=== PATIENT | female | born 2000 | race Caucasian/White ===

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

== ENCOUNTER 2018-04-25 19:39 | Emergency (ER) | payer MEDICAID ==
--- NOTE | 2018-04-25 20:30 | EDM.PDOC ---
ED HPI GENERAL MEDICAL PROBLEM - General Chief Complaint: Lower Extremity Injury/Pain Stated Complaint: POSSIBLE BROKEN TOE Time Seen by Provider: 04/25/18 20:10 Source of Information: Reports: Patient History Limitations: Reports: No Limitations - History of Present Illness INITIAL COMMENTS - FREE TEXT/NARRATIVE: 17-year-old female stubbed her right large toe this morning at 7 AM. It's been swollen all day, painful, and tonight started becoming ecchymotic so she wanted checked. No other injury or complaints. Onset: Sudden Duration: Hour(s): (13 hours ago) Location: Reports: Upper Extremity, Left Quality: Reports: Ache, Throbbing Worsens with: Reports: Other (Weightbearing and walking) Associated Symptoms: Reports: No Other Symptoms Right Big Toe Pain Score (Numeric/FACES): 6 - Related Data Allergies Allergy/AdvReac Type Severity Reaction Status Date / Time No Known Allergies Allergy Verified 04/25/18 20:07 Home Meds: Home Meds PNV95/Ferrous Fumarate/FA [ Tablet] 1 each PO DAILY 08/08/17 [History] Past Medical History - Past Health History Medical/Surgical History: Denies Medical/Surgical History [employer] History: Reports: Musculoskeletal History: Reports: Other (See Below) Other Musculoskeletal History: broken right femur as a toddler Neurological History: Reports: Migraines Social & Family History - Family History Family Medical History: Noncontributory - Tobacco Use Smoking Status *Q: Never Smoker Second Hand Smoke Exposure: No - Caffeine Use Caffeine Use: Reports: Soda - Recreational Drug Use Recreational Drug Use: No Review of Systems - Review of Systems Review Of Systems: See Below Constitutional: Denies: Fever Respiratory: Reports: No Symptoms Cardiovascular: Reports: No Symptoms GI/Abdominal: Reports: No Symptoms Genitourinary: Reports: No Symptoms Neurological: Reports: No Symptoms ED EXAM, GENERAL - Physical Exam Exam: See Below Exam Limited By: No Limitations General Appearance: Alert, No Apparent Distress Respiratory/Chest: No Respiratory Distress Extremities: Other (Exam is otherwise limited to the right foot. Patient has an extremely tender large toe with a linear bruise on the top of the toe and moderate ecchymosis around the IP joint. There is moderate swelling as well.) Neurological: Alert, Oriented Skin Exam: Ecchymosis Course - Vital Signs Last Recorded V/S: Last Vital Signs Temp 98.2 F 04/25/18 21:24 Pulse 74 04/25/18 21:24 Resp 12 04/25/18 21:24 BP 122/72 04/25/18 21:24 Pulse Ox 98 04/25/18 21:24 - Orders/Labs/Meds Orders: Active Orders 24 hr Category Date Time Status DME for Discharge [COMM] Stat Oth 04/25/18 20:56 Ordered - Re-Assessments/Exams Free Text/Narrative Re-Assessment/Exam: 04/25/18 20:31 An x-ray of the large right toe was obtained. 04/25/18 20:53 x-ray confirms a transverse fracture of the distal aspect of the proximal phalanx of the large toe. Somewhat concerning as it appears to be mildly comminuted with the fracture line extending into the IP joint. Patient was placed in an orthopedic shoe and the toes margot taped. She'll be discharged with 6 hydrocodone for extra pain control and I asked her to follow-up with orthopedics hopefully tomorrow. Next Monday would be reasonable as well. 04/25/18 20:57 Patient was also fitted for crutches to assist with ambulation over the next several days. Departure - Departure Time of Disposition: 21:29 Disposition: Home, Self-Care 01 Condition: Good Clinical Impression: Fx phalanx, foot-closed Qualifiers: Encounter type: initial encounter Toe: great toe Phalanx: proximal Physeal involvement: unspecified Laterality: right Qualified Code(s): S92.411A - Displaced fracture of proximal phalanx of right great toe, initial encounter for closed fracture - Discharge Information Instructions: Toe Fracture, [id number] Referrals: Kenya Caicedo CNM [Primary Care Provider] - Forms: ED Department Discharge Care Plan Goals: Try to recheck with orthopedics tomorrow or next Monday. Wear shoe until your recheck, margot tape the toes if it helps, and elevate when able. Ibuprofen will help, add your stronger pain medications if needed. - My Orders Last 24 Hours: My Active Orders 04/25/18 20:56 DME for Discharge [COMM] Stat - Assessment/Plan Last 24 Hours: My Active Orders 04/25/18 20:56 DME for Discharge [COMM] Stat
--- NOTE | 2018-04-25 21:19 | CRLCR ---
INDICATION: Pain after injury COMPARISON: None available. TECHNIQUE: The right great toe is examined with AP, lateral, and oblique views. There is an acute, oblique, intra-articular, nondisplaced fracture of the head of the 1st proximal phalanx. There is no sign of additional fracture or dislocation. The soft tissues are normal in appearance without sign of radio-opaque foreign body. No significant degenerative disease is seen. IMPRESSION: Acute, oblique, intra-articular, nondisplaced fracture of the head of the 1st proximal phalanx. Dictated by William Lake MD @ Apr 25 2018 9:14PM Signed by Dr. William Lake @ Apr 25 2018 9:16PM
== END 2018-04-25 21:05 | disposition home or self-care (01) ==
LOC: JP.ED 19:39
DX: S92.411A Displaced fracture of proximal phalanx of right great toe, initial encounter for closed fracture (principal); W22.8XXA Striking against or struck by other objects, initial encounter
CPT/HCPCS: 73660-T5; 99283-25

== ENCOUNTER 2021-04-19 01:30 | Inpatient (IN) | payer MEDICAID ==
[2021-04-19] MEDS ORDERED: Misoprostol 50 MCG (1/2 of 100 MCG) Tab VAG ONE (07:15)
[2021-04-19] MEDS ORDERED: Labetalol 100 MG Tab PO ONE (08:30)
[2021-04-19 09:27] LABS: CORONAVIRUS COVID-19 NAA NEGATIVE (NEGATIVE)
[2021-04-19] MEDS ORDERED: Misoprostol 25 MCG (1/4 of 100 MCG) Tab PO ONE (11:59)
[2021-04-19] MEDS ORDERED: Misoprostol 25 MCG (1/4 of 100 MCG) Tab ONE (12:01)
[2021-04-19] MEDS ORDERED: fentaNYL 100 MCG/2 ML SDV IVPUSH ONE ×2 (18:11→19:27)
[2021-04-19] MEDS ORDERED: Hydrocortisone 2.5% Crm 30 GM Tube TOP PRN (21:11)
[2021-04-19] MEDS ORDERED: Witch Hazel Medicated Pads 100/Jar TOP ONE (21:11)
[2021-04-19] MEDS ORDERED: Lanolin 100% Cream 40 GM Tube TOP ONE (21:11)
[2021-04-19] MEDS ORDERED: Benzocaine 20% Top Spray 56 GM Bottle TOP ONE (21:11)
[2021-04-19] MEDS: Acetaminophen 325 MG Tab PO PRN (22:27)
[2021-04-20] MEDS ORDERED: Witch Hazel Medicated Pads 100/Jar TOP PRN (07:11)
[2021-04-20] MEDS ORDERED: Benzocaine 20% Top Spray 56 GM Bottle TOP PRN (07:12)
[2021-04-20] MEDS ORDERED: Lanolin 100% Cream 40 GM Tube TOP PRN (07:13)
[2021-04-20] MEDS: Acetaminophen 325 MG Tab PO PRN ×2 (07:49→13:13)
[2021-04-20] MEDS: Labetalol 100 MG Tab PO SCH ×2 (08:59→20:47)
[2021-04-21] MEDS: Acetaminophen 325 MG Tab PO PRN (07:19)
[2021-04-21] MEDS: Labetalol 100 MG Tab PO SCH (08:25)
[2021-04-21] MEDS ORDERED: Non-Formulary Medication 1 Each (Pnv No.95/Ferrous Fum/Folic Ac [Prenatal Tablet] 1 EACH T PO SCH (09:00)
[2021-04-21] MEDS ORDERED: Aspirin 81 MG Tab.EC PO SCH (09:00)
[2021-04-21] MEDS ORDERED: Labetalol 100 MG Tab PO SCH (09:00)
[2021-04-21] MEDS ORDERED: Prenatal Multivitamin with Calcium/Folic Acid/Iron Tab PO SCH (09:00)
== END 2021-04-21 11:30 | disposition home or self-care (01) | DRG 807 ==
LOC: EDSTATUS 01:35 → PREINTOOBSV 01:40 → JP.OB 06:55 → OBSVTOIN 20:49 → JP.MS 22:58
PROVIDERS: ADMIT Nurse Practitioner Family; ATTEND Nurse Practitioner Family
PROC: 10E0XZZ Delivery of Products of Conception, External Approach (ICD-10-PCS; principal; 2021-04-19)
PROC: 3E0P7VZ Introduction of Hormone into Female Reproductive, Via Natural or Artificial Opening (ICD-10-PCS; 2021-04-19)
PROC: 10907ZC Drainage of Amniotic Fluid, Therapeutic from Products of Conception, Via Natural or Artificial Opening (ICD-10-PCS; 2021-04-19)
PROC: 4A1HXCZ Monitoring of Products of Conception, Cardiac Rate, External Approach (ICD-10-PCS; 2021-04-19)
DX: O13.4 Gestational [pregnancy-induced] hypertension without significant proteinuria, complicating childbirth (principal); Z37.0 Single live birth; Z3A.39 39 weeks gestation of pregnancy; Z20.822 Contact with and (suspected) exposure to COVID-19; Z87.891 Personal history of nicotine dependence
CPT/HCPCS: 0241U; 36415; 76818; 80053; 80305-QW; 81001; 82570; 83615; 83735; 84156; 84550; 85025; A9270-GY; J2590; J3010

== ENCOUNTER 2021-12-24 08:33 | Emergency (ER) | payer MEDICAID ==
[2021-12-24 09:40] LABS: CORONAVIRUS COVID-19 NAA NEGATIVE (NEGATIVE)
== END 2021-12-24 10:51 | disposition home or self-care (01) ==
LOC: JP.ED 08:33
DX: R05.9 Cough, unspecified (principal); B97.4 Respiratory syncytial virus as the cause of diseases classified elsewhere; Z20.822 Contact with and (suspected) exposure to COVID-19
CPT/HCPCS: 0241U; 99283

== ENCOUNTER 2023-09-09 02:15 | Emergency (ER) | payer MEDICAID ==
[2023-09-09] MEDS: Sodium Chloride 0.9% 1,000 ML IV SCH (03:15)
[2023-09-09 03:17] LABS: BASOPHILS ABSOLUTE AUTO 0.05 K/uL (0.00-0.10); BASOPHILS PERCENT AUTO 0.9 % (0.1-1.3); EOSINOPHILS ABSOLUTE AUTO 0.18 K/uL (0.00-0.40); EOSINOPHILS PERCENT AUTO 3.2 % (0.0-5.4); HEMATOCRIT 33.1 % (34.3-46.0); HEMOGLOBIN 10.9 g/dL (11.2-15.5); IMMATURE GRAN PERCENT AUTO 0.2 % (0.0-0.7); LYMPHOCYTES ABSOLUTE AUTO 1.72 K/uL (0.8-3.3); LYMPHOCYTES PERCENT AUTO 30.3 % (11.4-47.7); MEAN CORPUSCULAR HEMOGLOBIN 27.4 pg (31.6-35.5); MEAN CORPUSCULAR HGB CONC 32.9 g/dL (31.6-35.5); MEAN CORPUSCULAR VOLUME 83.2 fL (81.4-99.0); MONOCYTES ABSOLUTE AUTO 0.37 K/uL (0.20-0.90); MONOCYTES PERCENT AUTO 6.5 % (3.3-12.6); NEUTROPHILS ABSOLUTE AUTO 3.35 K/uL (1.0-7.6); NEUTROPHILS PERCENT AUTO 58.9 % (40.0-78.1); PLATELET COUNT,PLT 202 K/uL (130-375); RED BLOOD CELL COUNT 3.98 M/uL (3.77-5.24); WHITE BLOOD CELL COUNT,WBC 5.7 K/uL (3.2-11.0)
[2023-09-09] MEDS: droPERidol 5 MG/2 ML SDV IVPUSH ONE (03:18)
[2023-09-09 03:20] LABS: IMMATURE GRAN ABSOLUTE AUTO 0.01 K/uL (0.00-0.23)
[2023-09-09 03:33] LABS: A/G RATIO 1.2 (1.2-2.2); ALANINE AMINOTRANSFERASE,ALT 30 U/L (12-78); ALBUMIN 4.5 g/dL (3.4-5.0); ALKALINE PHOSPHATASE 80 U/L (46-116); ASPARTATE AMNIOTRANSFERASE,AST 17 U/L (15-37); BILIRUBIN TOTAL 0.3 mg/dL (0.2-1.0); BLOOD UREA NITROGEN,BUN 6 mg/dL (7-18); CALCIUM 8.6 mg/dL (8.5-10.1); CARBON DIOXIDE,CO2 26 mmol/L (21-32); CHLORIDE,CL 104 mmol/L (100-108); CREATININE 0.7 mg/dL (0.6-1.0); ESTIMATED GFR 124 mL/min (>60); GLUCOSE RANDOM 100 mg/dL (74-106); POTASSIUM,K 3.5 mmol/L (3.6-5.2); PROTEIN TOTAL,TP 8.4 g/dL (6.4-8.2); SODIUM,NA 142 mmol/L (140-148)
[2023-09-09 03:48] LABS: ANION GAP 15.5 mmol/L (5.0-14.0)
== END 2023-09-09 06:07 | disposition home or self-care (01) ==
LOC: JP.ED 02:15
DX: F10.920 Alcohol use, unspecified with intoxication, uncomplicated (principal); Z79.899 Other long term (current) drug therapy
CPT/HCPCS: 36415; 80053; 80307; 83605; 85025; 96361; 96374; 99284; J1790; J7030

== ENCOUNTER 2024-07-08 11:52 | Emergency (ER) | payer MEDICAID ==
[2024-07-08] MEDS: Ketorolac 30 MG/ML SDV IM ONE (13:49)
[2024-07-08] MEDS: Cyclobenzaprine 10 MG Tab PO ONE (13:49)
== END 2024-07-08 13:58 | disposition home or self-care (01) ==
LOC: JP.ED 11:52
DX: M25.561 Pain in right knee (principal); M25.562 Pain in left knee; Z79.899 Other long term (current) drug therapy; Z86.16 Personal history of COVID-19
CPT/HCPCS: 73562; 96372; 99284; A9270; J1885; 99283